=== PATIENT | male | born 1955 | race African-American/Black ===

== ENCOUNTER 2018-07-21 16:05 | Emergency (ER) | payer MEDICAID ==
[~2018-07-21] VITALS: Ht 175.3 cm; Wt 111.1 kg
[~2018-07-21 16:05] MED LIST: AMLODIPINE BESYL5 M1 PO; ASPIR 8181 MG PO; BENADRYL ALLERG25 M1 PO; CLONIDINE HCL0.1 MG PO; CORICIDIN HBP C1 TA1 PO; IBUPROFEN400 MG PO; ZITHROMAX Z-PA250 M2 PO
[2018-07-21 16:13] VITALS: Ht 175.3 cm; Wt 111.1 kg
[2018-07-21 17:49] VITALS: BP 168/127
== END 2018-07-21 17:49 | disposition home or self-care (01) ==
LOC: ED 16:05
DX: I10 Essential (primary) hypertension (principal); G89.29 Other chronic pain; M54.9 Dorsalgia, unspecified; Z76.0 Encounter for issue of repeat prescription

== ENCOUNTER 2019-05-31 05:43 | Emergency (ER) | payer MEDICAID ==
[~2019-05-31] VITALS: Ht 177.8 cm; Wt 110.2 kg
[2019-05-31 06:01] VITALS: BP 245/116; Ht 177.8 cm; Wt 110.2 kg
== END 2019-05-31 06:48 | disposition home or self-care (01) ==
LOC: ED 05:43
DX: I10 Essential (primary) hypertension (principal); Z76.0 Encounter for issue of repeat prescription; Z95.0 Presence of cardiac pacemaker